=== PATIENT | female | born 1970 | race Caucasian/White ===

== ENCOUNTER 2018-03-10 00:52 | Inpatient (IN) | payer OTHER ==
[2018-03-10] VITALS (10 sets, daily range): BP systolic 84–124; BP diastolic 58–80
[~2018-03-10] VITALS: Ht 162.6 cm; Wt 59.0 kg
[2018-03-10] MEDS ORDERED: XANAX2 MG ORAL (01:09)
[2018-03-10 02:02] LABS: HEMATOCRIT 31.8 % (37.0-47.0); HEMOGLOBIN 10.3 G/DL (12.0-16.0); MEAN CORPUSCULAR VOLUME 97 FL (80-99); PLATELET COUNT 237 K/UL (150-450); RED BLOOD COUNT 3.27 M/UL (4.20-5.40); RED CELL DISTRIBUTION WIDTH 11.2 % (11.6-14.8); WHITE BLOOD COUNT 5.8 K/UL (4.8-10.8)
[2018-03-10 02:03] LABS: APPEARANCE,URINE CLEAR; BILIRUBIN, URINE NEGATIVE (NEGATIVE); COLOR,URINE PALE YELLOW; GLUCOSE, URINE (UA) NEGATIVE (NEGATIVE); KETONES,URINE NEGATIVE (NEGATIVE); LEUKOCYTE ESTERASE ,URINE NEGATIVE (NEGATIVE); NITRITE,URINE NEGATIVE (NEGATIVE); PH,URINE 6 (4.5-8.0); PROTEIN,URINE NEGATIVE (NEGATIVE); UROBILINOGEN,URINE NORMAL MG/DL (0.0-1.0)
[2018-03-10 02:12] LABS: ANION GAP 10 mmol/L (5-15); BLOOD UREA NITROGEN 6 mg/dL (7-18); CALCIUM 7.8 MG/DL (8.5-10.1); CARBON DIOXIDE 25 MMOL/L (21-32); CHLORIDE 112 MMOL/L (98-107); CREATININE 0.8 MG/DL (0.55-1.30); POTASSIUM 3.4 MMOL/L (3.5-5.1); SODIUM 147 MMOL/L (136-145)
[2018-03-10 02:17] LABS: ALANINE AMINOTRANSFERASE 23 U/L (12-78); ALBUMIN 3.2 G/DL (3.4-5.0); ALBUMIN/GLOBULIN RATIO 1.2 (1.0-2.7); ALKALINE PHOSPHATASE 41 U/L (46-116); ASPARTATE AMINO TRANSFERASE 17 U/L (15-37); BILIRUBIN,TOTAL 0.1 MG/DL (0.2-1.0)
--- NOTE | 2018-03-10 04:44 | Emergency Room Report ---
History of Present Illness General Chief Complaint: Overdose Source: Family Member, EMS Present Illness HPI 47-year-old female presents ED for evaluation. Patient brought in by EMS for overdose. Patient called her father with SI last night. Father called building equipment inspector who called 911. Patient had a pill bottle with her with Xanax. Unclear how any tablets patient ingested. On arrival patient very lethargic. Unable to provide any additional history at this time. History of bipolar. No other aggravating relieving factors. No other associated symptoms Allergies: Coded Allergies: UNABLE TO ASSESS (Unverified , 03/10/18) Patient History Past Medical History: psych hx Past Surgical History: none Pertinent Family History: none Social History: Reports: drug use; Denies: smoking, alcohol use Now: No Immunizations: UTD Reviewed Nursing Documentation: PMH: Agreed; PSxH: Agreed Nursing Documentation-PMH History Of Psychiatric Problem: Yes - BIPOLAR Review of Systems All Other Systems: limited Physical Exam Vital Signs Date Time Temp Pulse Resp B/P (MAP) Pulse Ox O2 Delivery O2 Flow Rate FiO2 03/10/18 01:03 97.6 60 14 80/54 98 Room Air 97.5 03/10/18 01:15 2.0 98 Sp02 EP Interpretation: reviewed, normal General Appearance: lethargic Head: normocephalic Eyes: bilateral eye normal inspection, bilateral eye PERRL ENT: normal ENT inspection Neck: normal inspection Respiratory: chest non-tender, lungs clear, normal breath sounds, speaking full sentences Cardiovascular #1: regular rate, rhythm, no edema Gastrointestinal: normal bowel sounds, non tender, soft, non-distended, no guarding, no rebound Rectal: deferred Genitourinary: no CVA tenderness Musculoskeletal: normal inspection Neurologic: other - lethargic Psychiatric: other - lethargic Skin: normal inspection Lymphatic: normal inspection Medical Decision Making Diagnostic Impression: Primary Impression: Drug overdose Qualified Codes: T50.902A - Poisoning by unspecified drugs, medicaments and biological substances, intentional self-harm, initial encounter Additional Impression: Alcohol intoxication Qualified Codes: F10.929 - Alcohol use, unspecified with intoxication, unspecified ER Course Hospital Course 47-year-old female presents to ED with altered mental status. Took xanax in suicide attempt Differential diagnoses include: ETOH itnoxication, BZ overdose, SI Clinical course She placed on stretcher. On cardiac rehabilitation specialist. After initial history and physical ordered labs, IV fluids, Utox Labs reviewed-Na 147, K 3.3, no leukocytosis, hemoglobin/hematocrit stable, Utox + BZs EKG - NSR, no acute ischemic changes interpreted by me Poison control contacted-no acute intervention required. Observed for respiratory depression. Patient on one-to-one observation case discussed with Dr. vickers and he agreed to accept the patient to his service for further care and support. Dr Murphy contacted for psychiatric evaluation once patient stabilized i. I feel this is a highly complex case requiring extensive working including EKG/Rhythm strip, Xray/CT/US, Blood/urine lab work, repeat exams while in ED, and administration of strong opiates/narcotics for pain control, admission to hospital or close patient follow up. Diagnosis - drug overdose, ETOH intoxication Admitted to telemetry in serious condition Labs Test 03/10/18 01:40 White Blood Count 5.8 K/UL (4.8-10.8) Red Blood Count 3.27 M/UL (4.20-5.40) Hemoglobin 10.3 G/DL (12.0-16.0) Hematocrit 31.8 % (37.0-47.0) Mean Corpuscular Volume 97 FL (80-99) Mean Corpuscular Hemoglobin 31.5 PG (27.0-31.0) Mean Corpuscular Hemoglobin Concent 32.4 G/DL (32.0-36.0) Red Cell Distribution Width 11.2 % (11.6-14.8) Platelet Count 237 K/UL (150-450) Mean Platelet Volume 6.5 FL (6.5-10.1) Neutrophils (%) (Auto) % (45.0-75.0) Lymphocytes (%) (Auto) % (20.0-45.0) Monocytes (%) (Auto) % (1.0-10.0) Eosinophils (%) (Auto) % (0.0-3.0) Basophils (%) (Auto) % (0.0-2.0) Urine Color Pale yellow Urine Appearance Clear Urine pH 6 (4.5-8.0) Urine Specific [place] 1.010 (1.005-1.035) Urine Protein Negative (NEGATIVE) Urine Glucose (UA) Negative (NEGATIVE) Urine Ketones Negative (NEGATIVE) Urine Occult Blood Negative (NEGATIVE) Urine Nitrite Negative (NEGATIVE) Urine Bilirubin Negative (NEGATIVE) Urine Urobilinogen Normal MG/DL (0.0-1.0) Urine Leukocyte Esterase Negative (NEGATIVE) Urine HCG, Qualitative Negative (NEGATIVE) Sodium Level 147 MMOL/L (136-145) Potassium Level 3.4 MMOL/L (3.5-5.1) Chloride Level 112 MMOL/L (98-107) Carbon Dioxide Level 25 MMOL/L (21-32) Anion Gap 10 mmol/L (5-15) Blood Urea Nitrogen 6 mg/dL (7-18) Creatinine 0.8 MG/DL (0.55-1.30) Estimat Glomerular Filtration Rate > 60 mL/min (>60) Glucose Level 92 MG/DL (74-106) Calcium Level 7.8 MG/DL (8.5-10.1) Total Bilirubin 0.1 MG/DL (0.2-1.0) Aspartate Amino Transf (AST/SGOT) 17 U/L (15-37) Alanine Aminotransferase (ALT/SGPT) 23 U/L (12-78) Alkaline Phosphatase 41 U/L (46-116) Total Protein 5.9 G/DL (6.4-8.2) Albumin 3.2 G/DL (3.4-5.0) Globulin 2.7 g/dL Albumin/Globulin Ratio 1.2 (1.0-2.7) Salicylates Level 1.0 ug/mL (2.8-20) Urine Opiates Screen Negative (NEGATIVE) Acetaminophen Level < 2 MCG/ML (10-30) Urine Barbiturates Screen Negative (NEGATIVE) Phencyclidine (PCP) Screen Negative (NEGATIVE) Urine Amphetamines Screen Negative (NEGATIVE) Urine Benzodiazepines Screen Positive (NEGATIVE) Urine Cocaine Screen Negative (NEGATIVE) Urine Marijuana (THC) Screen Negative (NEGATIVE) Serum Alcohol 215 mg/dL EKG Diagnostic Results Rate: normal Rhythm: NSR ST Segments: no acute changes ASA given to the pt in ED: No Rhythm Strip Diag. Results EP Interpretation: yes Rhythm: NSR, no PVC's, no ectopy Last Vital Signs Date Time Temp Pulse Resp B/P (MAP) Pulse Ox O2 Delivery O2 Flow Rate FiO2 03/10/18 03:15 97.5 51 13 84/58 100 Nasal Cannula 2.0 98 97.5 Status: improved Disposition: ADMITTED INPATIENT Condition: Serious Referrals: [facility],REFERRING (PCP) Carlo De La Paz MD Mar 10, 2018 04:44
--- NOTE | 2018-03-10 11:15 | Consultation ---
History of Present Illness General Date patient seen: Mar 10, 2018 Chief Complaint: Overdose Present Illness HPI 47-year-old female presents ED for evaluation. Patient brought in by EMS for overdose after she took her Xanax and vodka. Per father the pt called her last night and stated that she is going to end her life by taking Xanax and she was drinking . the father called 911 and flew to [place] from [place]. During the evaluation, the pt was slightly confused. Her speech was slurred and she stated that she tried to end her life bc she has been dealing with depression for 27 years and wanted to put her family out of misery. The pt has a sitter and her Xanax was confiscated and will destroyed by pharmacy. Allergies: Coded Allergies: UNABLE TO ASSESS (Unverified , 03/10/18) Medication History Scheduled Alprazolam* (Xanax*), 2 MG ORAL BID, (Reported) Patient History Limited by: medical condition History Provided By: Patient, Family Member, Medical Record, PMD Healthcare decision maker Resuscitation status Advanced Directive on File Past Medical/Surgical History Past Medical/Surgical History: (1) Alcohol intoxication (2) Drug overdose Review of Systems Psychiatric: Reports: see HPI, prior hx, anxiety, depressed feelings, emotional problems Physical Exam General Appearance: no apparent distress, alert, confused Neurologic: oriented x 3, responsive, depressed affect Last 24 Hour Vital Signs Date Time Temp Pulse Resp B/P (MAP) Pulse Ox O2 Delivery O2 Flow Rate FiO2 03/10/18 07:30 97.8 67 16 95/70 97 Nasal Cannula 2.0 97.8 03/10/18 06:15 97.8 67 15 97/70 99 Nasal Cannula 2.0 98 97.8 03/10/18 05:15 97.8 69 15 124/80 97 Nasal Cannula 2.0 98 97.8 03/10/18 04:15 97.8 83 13 94/58 100 Nasal Cannula 2.0 98 97.8 03/10/18 03:15 97.5 51 13 84/58 100 Nasal Cannula 2.0 98 97.5 03/10/18 02:15 97.5 83 15 112/74 100 Nasal Cannula 2.0 98 97.5 03/10/18 01:15 97.5 58 14 84/64 98 Nasal Cannula 2.0 98 97.5 03/10/18 01:15 58 14 Nasal Cannula 2.0 98 03/10/18 01:03 97.6 60 14 80/54 98 Room Air 97.5 Intake and Output 03/09/18 03/10/18 19:00 07:00 Intake Total 3000 ml Output Total 1200 ml Balance 1800 ml Intake IV Total 3000 ml Output Urine Total 1200 ml Laboratory Tests Test 03/10/18 01:40 White Blood Count 5.8 K/UL (4.8-10.8) Red Blood Count 3.27 M/UL (4.20-5.40) L Hemoglobin 10.3 G/DL (12.0-16.0) L Hematocrit 31.8 % (37.0-47.0) L Mean Corpuscular Volume 97 FL (80-99) Mean Corpuscular Hemoglobin 31.5 PG (27.0-31.0) H Mean Corpuscular Hemoglobin Concent 32.4 G/DL (32.0-36.0) Red Cell Distribution Width 11.2 % (11.6-14.8) L Platelet Count 237 K/UL (150-450) Mean Platelet Volume 6.5 FL (6.5-10.1) Neutrophils (%) (Auto) % (45.0-75.0) Lymphocytes (%) (Auto) % (20.0-45.0) Monocytes (%) (Auto) % (1.0-10.0) Eosinophils (%) (Auto) % (0.0-3.0) Basophils (%) (Auto) % (0.0-2.0) Urine Color Pale yellow Urine Appearance Clear Urine pH 6 (4.5-8.0) Urine Specific [place] 1.010 (1.005-1.035) Urine Protein Negative (NEGATIVE) Urine Glucose (UA) Negative (NEGATIVE) Urine Ketones Negative (NEGATIVE) Urine Occult Blood Negative (NEGATIVE) Urine Nitrite Negative (NEGATIVE) Urine Bilirubin Negative (NEGATIVE) Urine Urobilinogen Normal MG/DL (0.0-1.0) Urine Leukocyte Esterase Negative (NEGATIVE) Urine HCG, Qualitative Negative (NEGATIVE) Sodium Level 147 MMOL/L (136-145) H Potassium Level 3.4 MMOL/L (3.5-5.1) L Chloride Level 112 MMOL/L (98-107) H Carbon Dioxide Level 25 MMOL/L (21-32) Anion Gap 10 mmol/L (5-15) Blood Urea Nitrogen 6 mg/dL (7-18) L Creatinine 0.8 MG/DL (0.55-1.30) Estimat Glomerular Filtration Rate > 60 mL/min (>60) Glucose Level 92 MG/DL (74-106) Calcium Level 7.8 MG/DL (8.5-10.1) L Total Bilirubin 0.1 MG/DL (0.2-1.0) L Aspartate Amino Transf (AST/SGOT) 17 U/L (15-37) Alanine Aminotransferase (ALT/SGPT) 23 U/L (12-78) Alkaline Phosphatase 41 U/L (46-116) L Total Protein 5.9 G/DL (6.4-8.2) L Albumin 3.2 G/DL (3.4-5.0) L Globulin 2.7 g/dL Albumin/Globulin Ratio 1.2 (1.0-2.7) Salicylates Level 1.0 ug/mL (2.8-20) L Urine Opiates Screen Negative (NEGATIVE) Acetaminophen Level < 2 MCG/ML (10-30) L Urine Barbiturates Screen Negative (NEGATIVE) Phencyclidine (PCP) Screen Negative (NEGATIVE) Urine Amphetamines Screen Negative (NEGATIVE) Urine Benzodiazepines Screen Positive (NEGATIVE) H Urine Cocaine Screen Negative (NEGATIVE) Urine Marijuana (THC) Screen Negative (NEGATIVE) Serum Alcohol 215 mg/dL Height (Feet): 5 Height (Inches): 4.00 Weight (Pounds): 130 Medications Current Medications Medications (Trade) Dose Ordered Sig/Philomena Route PRN Reason Start Time Stop Time Status Last Admin Dose Admin Diazepam (Valium) 10 mg Q6H PRN ORAL For Anxiety 03/10/18 11:00 03/17/18 10:59 Fluoxetine HCl (PROzac) 20 mg DAILY ORAL 03/11/18 11:07 04/10/18 11:06 Folic Acid (Folate) 1 mg DAILY ORAL 03/10/18 11:06 04/09/18 11:05 Multivitamins (Multivitamins) 1 tab DAILY ORAL 03/10/18 11:07 04/09/18 11:06 Sodium Chloride 1,000 ml @ 75 mls/hr [id number] IV 03/10/18 10:00 04/09/18 09:59 03/10/18 10:31 Thiamine HCl (Vitamin B1) 100 mg DAILY ORAL 03/10/18 11:06 04/09/18 11:05 Assessment/Plan Status: stable Assessment/Plan MDD Alcohol/benzo dependence anxiety ?borderline pd? -dc Xanax -folate -thiamine -Multivitamin -Prozac -send to psychiatric unit after medically cleared. Jasvir Murphy MD Mar 10, 2018 11:15
[2018-03-10] MEDS: Thiamine 100mg tab ORAL SCH (11:22)
--- NOTE | 2018-03-10 15:00 | Consultation ---
Consult Note Consult Note abnormal electrolytes- 47-year-old female presents ED for evaluation. Patient brought in by EMS for overdose. Patient called her father with SI last night. Father called building energy retrofit technician who called 911. Patient had a pill bottle with her with Xanax. Unclear how any tablets patient ingested. On arrival patient very lethargic. Unable to provide any additional history at this time. History of bipolar. No other aggravating relieving factors. No other associated symptoms Past Medical History: psych hx History Of Psychiatric Problem: Yes - BIPOLAR slow- slurred labs reviewed [place] Assessment/Plan Drug OD- Alcohol Intox- Low Na High Na Anemia IV Fluid- KCL IV monitor Rick Shahid MD Mar 10, 2018 15:00
--- NOTE | 2018-03-10 15:30 | Cardiology Report ---
APPROVED REPORT EKG Measurement Heart [id number] Normal sinus rhythm Cannot rule out Inferior infarct, age undetermined Prolonged QT Abnormal ECG
[2018-03-10] MEDS: Docusate 100mg cap ORAL SCH ×2 (15:42→17:17)
[2018-03-10] MEDS: D5 1/2NS w/KCl 20mEq 1,000 ML IV SCH (15:42)
--- NOTE | 2018-03-10 16:45 | History and Physical Report ---
DATE OF ADMISSION: 03/10/2018 HISTORY OF PRESENT ILLNESS: The patient came in with overdose on Xanax and alcohol. The patient is too confused, cannot get a reliable history at this point. So, we do not know how much she consumed. Speech is garbled at this point and cannot say any words coherently. The patient, according to the ER doctor who called her father, with SI intent last night. Father called manager research who called 911. The patient had a drug bottle with herself of the Xanax and again we are not sure how many tablets she took. She is a very poor historian. The patient is currently lethargic upon arrival, apparently has history of bipolar as well. Again, cannot get any history at this point. PAST MEDICAL HISTORY: Depression as well as GERD. PAST SURGICAL HISTORY: Cannot tell me what surgery she had. MEDICATIONS: Apparently takes Xanax, but again cannot get a reliable history from her. FAMILY HISTORY: Unable to obtain. SOCIAL HISTORY: The patient claims that she smokes and has history of drug and alcohol abuse, but again speech is garbled, history is not reliable at this point. REVIEW OF SYSTEMS: Again, the patient has gargled speech, cannot comprehend what she is saying. She is confused and moaning. Eyes spontaneously open. PHYSICAL EXAMINATION: VITAL SIGNS: Temperature 97.5 degrees, pulse is 83, and blood pressure 112/74. HEENT: PERRLA. NECK: Supple. No lymphadenopathy. CHEST: Clear to auscultation. CARDIOVASCULAR: Regular rate and rhythm. ABDOMEN: Soft and nontender. Positive bowel sounds. EXTREMITIES: No edema. Reflexes on both sides. CENTRAL NERVOUS SYSTEM: Does not follow neurological exam, agitated, garbled speech, and only oriented to name. LABORATORY AND DIAGNOSTIC DATA: WBC of 5.8, hemoglobin 10.3, and platelets 237. Sodium 147, potassium of 3.4, chloride of 112, carbon dioxide 25, BUN of 6, creatinine of 0.8, and glucose of 92. ASSESSMENT AND PLAN: Overdose on Xanax and possibly alcohol and suicidal intent. One-to-one sitter is ordered from the ER. We have also consulted Dr. Presley, Dr. Murphy, Dr. Love, Dr. Byers, and Dr. Gutierrez to make sure there is no cardiac pathology from this overdose as well as to help with alcohol and Xanax withdrawal and also for the treatment of the depression as well as for the treatment of the hypokalemia. Erika Cesar M.D. DR: BART JOB#: [id number] CC:
--- NOTE | 2018-03-10 19:13 | Consultation ---
Consult Note Consult Note NEUROLOGY CONSULTATION: Full note dictated #[id number] 47 y/o, RH, CF with PH of depression for sometime who got despondent and took a large amount of Xanax. She was brought to the [facility] ER and admitted for a Xanax OD. She feels better now. She however is still depressed. ON EXAM: Problems with orientation, memory. No focal or lateralizing findings. IMPRESSION: Benzodiazepine + Alcohol intoxication - now better. REC: Rx of depression. Normal diet. Observe. Hugh Love M.D., M.S.P.H. HUGH LOVE Mar 10, 2018 19:13
--- NOTE | 2018-03-10 21:30 | Consultation ---
DATE OF CONSULTATION: 03/10/2018 NEUROLOGY CONSULTATION CONSULTING PHYSICIAN: Carlos Love M.D. REQUESTING PHYSICIAN: Erika Cesar M.D. HISTORY: Ms. Yi Salcedo is a 47-year-old, right-handed, lady, who has had depression for quite sometime now. She apparently got despondent and took a large dose of Xanax with alcohol. As per her chart, she had called her father the night before and stated that she was going to end her life by taking Xanax and drinking alcohol. The father called the emergency services and flew in from [place] to [place]. She was then brought into the [facility] emergency room and admitted. At this point in time, she feels better, but she still quite depressed. She is aware that the mind is still not clear. She, however denies any weakness on one side or the other, numbness on one side or the other, problems with speech, problems with language, problems with vision, problems with memory, or other neurological problems. PAST MEDICAL HISTORY: Significant for depression for numerous years. FAMILY HISTORY: Nothing significant. PERSONAL HISTORY: Home: She lives alone. 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 Habits: She drinks alcohol from time to time. She denies the use of tobacco or illicit drugs. She also uses Xanax as needed. MEDICATIONS: Present medications at home included Xanax p.r.n. PHYSICAL EXAMINATION: GENERAL: She is a well-developed, well-nourished, lady, lying in bed, in no acute distress. VITAL SIGNS: Pulse 61/minute, blood pressure 101/72 mmHg, respirations 19/minute, and temperature 96.6 degrees Fahrenheit. HEAD: Normocephalic and atraumatic. EENT: Examination benign. NECK: No neck rigidity was observed. NEUROLOGIC EXAMINATION: MENTAL STATUS EXAMINATION: She was awake and alert. She was oriented to person, place, and time except for the exact date. She thought it was the . She was able to recall 3/3 words immediately and could remember them in 1 minute, but could only remember 2/3 words in 3 minutes. She was able to remember presidents, Trump through Obama, but could not remember presidents prior to that. Her mathematical skills were fairly good. Her visuospatial function was preserved. SPEECH: She had no dysarthria. LANGUAGE: She had no aphasia. CRANIAL NERVE EXAMINATION: II: The visual story were intact to confrontation testing. III, IV & : External ocular movements were full and the pupils 3 mm in diameter, equal, round, regular, and reactive to light. V: She had normal facial sensations, and the temporales, masseters, and pterygoids functioned normally. VII: She had normal facial expressions and no facial asymmetry. VIII: She was able to hear well bilaterally and had no nystagmus. IX: The palate moved symmetrically on phonation. X: She had no hoarseness of voice. XI: The sternocleidomastoids and trapezii functioned normally. XII: The tongue was in the midline without any fasciculations or atrophy. MOTOR SYSTEM: The tone was normal in all four extremities. Examination of muscle mass revealed no focal wasting. Examination of power revealed G 5/5 power in all muscle groups tested. SENSORY EXAMINATION: She had intact sensations to pinprick, light touch, and graphesthesia. COORDINATION: She performed well on aviuhy-zi-nrlh and iacm-ut-knqw testing. REFLEXES: 2+ and bilaterally symmetrical at the biceps, triceps, brachioradialis, and knees. 1+ at both ankles. The plantar responses were flexor bilaterally. STANCE & GAIT: Were deferred. DIAGNOSTIC IMPRESSION: 1. Ms. Yi Salcedo is a 47-year-old, right-handed, lady, who does have a long history of depression, who apparently got despondent and took a large amount of Xanax and alcohol. She was brought into the emergency room and admitted for Xanax overdose. She feels significantly better now, but she is still quite depressed. 2. On neurological examination, at this time, she does have mild problems with orientation, and recent and remote memory. She however does not demonstrate any focal or lateralizing neurological findings. 3. Laboratory data obtained thus far revealed that she is mildly anemic with a hemoglobin of 10.3 G. The chemistry panel revealed a sodium elevated to 147, chloride elevated to 112 and an albumin low at 3.2. Her serum alcohol level was elevated to 215 and her urine toxicology screen was positive for benzodiazepines. Her urinalysis was benign. 4. The patient's history, neurological examination, and laboratory data are most compatible with intoxication with Xanax and alcohol. RECOMMENDATIONS: 1. Agree with management thus far. 2. Aggressive treatment of depression. 3. The patient is awake and alert now and can be started on a normal diet. 4. The patient should be observed closely and depending on how she fares further recommendations will be given. Thank you for entrusting me with the care of Ms. Salcedo. I shall follow her with you. Carlos Love M.D., M.S.P.H. DR: CARMEN JOB#: [id number] MTDD
--- NOTE | 2018-03-10 23:52 | Cardiology Progress Note ---
Assessment/Plan Assessment/Plan The patient is seen and examined, full consult note will be dictated shortly. Objective Last 24 Hour Vital Signs Date Time Temp Pulse Resp B/P (MAP) Pulse Ox O2 Delivery O2 Flow Rate FiO2 03/10/18 21:00 Room Air 03/10/18 20:00 97.5 73 19 102/74 (83) 94 97.5 03/10/18 16:00 69 03/10/18 16:00 96.6 63 19 101/68 (79) 96 96.6 03/10/18 12:00 96.6 61 19 101/72 (82) 97 96.6 03/10/18 12:00 74 03/10/18 08:00 68 03/10/18 08:00 95.5 70 18 89/58 (68) 97 95.5 03/10/18 08:00 Room Air 03/10/18 07:30 97.8 67 16 95/70 97 Nasal Cannula 2.0 97.8 03/10/18 06:15 97.8 67 15 97/70 99 Nasal Cannula 2.0 98 97.8 03/10/18 05:15 97.8 69 15 124/80 97 Nasal Cannula 2.0 98 97.8 03/10/18 04:15 97.8 83 13 94/58 100 Nasal Cannula 2.0 98 97.8 03/10/18 03:15 97.5 51 13 84/58 100 Nasal Cannula 2.0 98 97.5 03/10/18 02:15 97.5 83 15 112/74 100 Nasal Cannula 2.0 98 97.5 03/10/18 01:15 97.5 58 14 84/64 98 Nasal Cannula 2.0 98 97.5 03/10/18 01:15 58 14 Nasal Cannula 2.0 98 03/10/18 01:03 97.6 60 14 80/54 98 Room Air 97.5 Intake and Output 03/09/18 03/10/18 19:00 07:00 Intake Total 3000 ml Output Total 1200 ml Balance 1800 ml Intake IV Total 3000 ml Output Urine Total 1200 ml Laboratory Tests Test 03/10/18 01:40 White Blood Count 5.8 K/UL (4.8-10.8) Red Blood Count 3.27 M/UL (4.20-5.40) L Hemoglobin 10.3 G/DL (12.0-16.0) L Hematocrit 31.8 % (37.0-47.0) L Mean Corpuscular Volume 97 FL (80-99) Mean Corpuscular Hemoglobin 31.5 PG (27.0-31.0) H Mean Corpuscular Hemoglobin Concent 32.4 G/DL (32.0-36.0) Red Cell Distribution Width 11.2 % (11.6-14.8) L Platelet Count 237 K/UL (150-450) Mean Platelet Volume 6.5 FL (6.5-10.1) Neutrophils (%) (Auto) % (45.0-75.0) Lymphocytes (%) (Auto) % (20.0-45.0) Monocytes (%) (Auto) % (1.0-10.0) Eosinophils (%) (Auto) % (0.0-3.0) Basophils (%) (Auto) % (0.0-2.0) Urine Color Pale yellow Urine Appearance Clear Urine pH 6 (4.5-8.0) Urine Specific [place] 1.010 (1.005-1.035) Urine Protein Negative (NEGATIVE) Urine Glucose (UA) Negative (NEGATIVE) Urine Ketones Negative (NEGATIVE) Urine Occult Blood Negative (NEGATIVE) Urine Nitrite Negative (NEGATIVE) Urine Bilirubin Negative (NEGATIVE) Urine Urobilinogen Normal MG/DL (0.0-1.0) Urine Leukocyte Esterase Negative (NEGATIVE) Urine HCG, Qualitative Negative (NEGATIVE) Sodium Level 147 MMOL/L (136-145) H Potassium Level 3.4 MMOL/L (3.5-5.1) L Chloride Level 112 MMOL/L (98-107) H Carbon Dioxide Level 25 MMOL/L (21-32) Anion Gap 10 mmol/L (5-15) Blood Urea Nitrogen 6 mg/dL (7-18) L Creatinine 0.8 MG/DL (0.55-1.30) Estimat Glomerular Filtration Rate > 60 mL/min (>60) Glucose Level 92 MG/DL (74-106) Calcium Level 7.8 MG/DL (8.5-10.1) L Total Bilirubin 0.1 MG/DL (0.2-1.0) L Aspartate Amino Transf (AST/SGOT) 17 U/L (15-37) Alanine Aminotransferase (ALT/SGPT) 23 U/L (12-78) Alkaline Phosphatase 41 U/L (46-116) L C-Reactive Protein, Quantitative < 0.4 mg/dL (0.00-0.90) Total Protein 5.9 G/DL (6.4-8.2) L Albumin 3.2 G/DL (3.4-5.0) L Globulin 2.7 g/dL Albumin/Globulin Ratio 1.2 (1.0-2.7) Salicylates Level 1.0 ug/mL (2.8-20) L Urine Opiates Screen Negative (NEGATIVE) Acetaminophen Level < 2 MCG/ML (10-30) L Urine Barbiturates Screen Negative (NEGATIVE) Phencyclidine (PCP) Screen Negative (NEGATIVE) Urine Amphetamines Screen Negative (NEGATIVE) Urine Benzodiazepines Screen Positive (NEGATIVE) H Urine Cocaine Screen Negative (NEGATIVE) Urine Marijuana (THC) Screen Negative (NEGATIVE) Serum Alcohol 215 mg/dL Jelani Gutierrez MD Mar 10, 2018 23:52
[2018-03-11] VITALS: BP 119/79
[2018-03-11] MEDS: D5 1/2NS w/KCl 20mEq 1,000 ML IV SCH (01:33)
[2018-03-11 04:00] VITALS: BP 112/74
[2018-03-11 06:38] LABS: EOSINOPHILS % (AUTO) 1.2 % (0.0-3.0); HEMATOCRIT 33.2 % (37.0-47.0); HEMOGLOBIN 10.9 G/DL (12.0-16.0); LYMPHOCYTES % (AUTO) 26.2 % (20.0-45.0); MEAN CORPUSCULAR VOLUME 98 FL (80-99); NEUTROPHILS % (AUTO) 67.6 % (45.0-75.0); PLATELET COUNT 220 K/UL (150-450); RED BLOOD COUNT 3.39 M/UL (4.20-5.40); RED CELL DISTRIBUTION WIDTH 11.7 % (11.6-14.8); WHITE BLOOD COUNT 5.4 K/UL (4.8-10.8)
[2018-03-11 07:03] LABS: ALANINE AMINOTRANSFERASE 27 U/L (12-78); ALBUMIN 2.8 G/DL (3.4-5.0); ALBUMIN/GLOBULIN RATIO 1.1 (1.0-2.7); ALKALINE PHOSPHATASE 42 U/L (46-116); ANION GAP 7 mmol/L (5-15); ASPARTATE AMINO TRANSFERASE 21 U/L (15-37); BILIRUBIN,TOTAL 0.4 MG/DL (0.2-1.0); BLOOD UREA NITROGEN 5 mg/dL (7-18); CALCIUM 7.6 MG/DL (8.5-10.1); CARBON DIOXIDE 23 MMOL/L (21-32); CHLORIDE 112 MMOL/L (98-107); CHOLESTEROL 135 MG/DL (< 200); CREATINE KINASE 63 U/L (26-308); CREATININE 0.7 MG/DL (0.55-1.30); GAMMA GLUTAMYL TRANSPEPTIDASE 23 U/L (5-85); HDL CHOLESTEROL 52 MG/DL (40-60); PHOSPHORUS 2.1 MG/DL (2.5-4.9); POTASSIUM 3.7 MMOL/L (3.5-5.1); SODIUM 141 MMOL/L (136-145); TRIGLYCERIDES 93 MG/DL (30-150)
[2018-03-11 07:14] LABS: % IRON SATURATION 24 % (15-50); IRON 62 ug/dL (50-175); TOTAL IRON BINDING CAPACITY 262 ug/dL (250-450)
[2018-03-11 07:48] VITALS: BP 107/69
[2018-03-11] MEDS: Docusate 100mg cap ORAL SCH ×3 (08:10→17:53)
[2018-03-11] MEDS: Thiamine 100mg tab ORAL SCH (08:10)
--- NOTE | 2018-03-11 09:04 | Nephrology Progress Note ---
Assessment/Plan Problem List: (1) Drug overdose (2) Alcohol intoxication (3) Anemia Assessment Drug OD- Alcohol Intox- Low K High Na Anemia Plan DC Phillips- DC IV- Ambulate PO liquids Subjective ROS Limited/Unobtainable: No Constitutional: Reports: other - more alert Objective Objective Last 24 Hour Vital Signs Date Time Temp Pulse Resp B/P (MAP) Pulse Ox O2 Delivery O2 Flow Rate FiO2 03/11/18 08:00 77 03/11/18 07:48 98.1 79 20 107/69 (82) 95 98.1 03/11/18 04:00 98.4 74 19 112/74 (87) 95 98.4 03/11/18 04:00 73 03/11/18 00:00 96.8 68 19 119/79 (92) 99 96.8 03/11/18 00:00 72 03/10/18 21:00 Room Air 03/10/18 20:00 97.5 73 19 102/74 (83) 94 97.5 03/10/18 20:00 74 03/10/18 16:00 69 03/10/18 16:00 96.6 63 19 101/68 (79) 96 96.6 03/10/18 12:00 96.6 61 19 101/72 (82) 97 96.6 03/10/18 12:00 74 Intake and Output 03/10/18 03/11/18 19:00 07:00 Output Total 1000 ml 1600 ml Balance -1000 ml -1600 ml Output Urine Total 1000 ml 1600 ml Laboratory Tests 03/11/18 06:03: White Blood Count 5.4, Red Blood Count 3.39L, Hemoglobin 10.9L, Hematocrit 33.2L , Mean Corpuscular Volume 98, Mean Corpuscular Hemoglobin 32.2H, Mean Corpuscular Hemoglobin Concent 32.9, Red Cell Distribution Width 11.7, Platelet Count 220, Mean Platelet Volume 6.7, Neutrophils (%) (Auto) 67.6, Lymphocytes (% ) (Auto) 26.2, Monocytes (%) (Auto) 4.0, Eosinophils (%) (Auto) 1.2, Basophils ( %) (Auto) 1.0, Sodium Level 141, Potassium Level 3.7, Chloride Level 112H, Carbon Dioxide Level 23, Anion Gap 7, Blood Urea Nitrogen 5L, Creatinine 0.7, Estimat Glomerular Filtration Rate > 60, Glucose Level 123H, Uric Acid 0.8L, Calcium Level 7.6L, Phosphorus Level 2.1L, Magnesium Level 2.5H, Iron Level 62, Total Iron Binding Capacity 262, Percent Iron Saturation 24, Unsaturated Iron Binding 200, Ferritin 30, Total Bilirubin 0.4, Gamma Glutamyl Transpeptidase 23 , Aspartate Amino Transf (AST/SGOT) 21, Alanine Aminotransferase (ALT/SGPT) 27, Alkaline Phosphatase 42L, Total Creatine Kinase 63, Pro-B-Type Natriuretic Peptide 538H, Total Protein 5.3L, Albumin 2.8L, Globulin 2.5, Albumin/Globulin Ratio 1.1, Triglycerides Level 93, Cholesterol Level 135, LDL Cholesterol 83, HDL Cholesterol 52, Cholesterol/HDL Ratio 2.6L, Vitamin B12 Level 419, Thyroid Stimulating Hormone (TSH) 1.537 Height (Feet): 5 Height (Inches): 4.00 Weight (Pounds): 130 General Appearance: no apparent distress Neck: normal alignment Cardiovascular: normal rate Respiratory/Chest: lungs clear Abdomen: soft Rick Presley MD Mar 11, 2018 09:04
[2018-03-11] MEDS ORDERED: Phospha 250 Neutral tab ORAL SCH (09:30)
[2018-03-11] MEDS ORDERED: PAXIL40 MG ORAL (09:32)
[2018-03-11] MEDS ORDERED: TOPAMAX100 MG ORAL (09:32)
[2018-03-11] MEDS ORDERED: Vitamin D 50,000 units cap ORAL SCH (11:00)
[2018-03-11 11:53] VITALS: BP 115/73
--- NOTE | 2018-03-11 13:01 | General Progress Note ---
Assessment/Plan Status: unchanged Assessment/Plan MDD Alcohol/benzo dependence anxiety ?borderline pd? -dc Xanax -folate -thiamine -Multivitamin -cymbalta -seroquel -send to psychiatric unit after medically cleared. -vol or 5150 -d/w father Subjective Date patient seen: Mar 11, 2018 Neurologic/Psychiatric: Reports: anxiety, depressed, emotional problems Allergies: Coded Allergies: NO KNOWN ALLERGIES (Verified Allergy, Unknown, 03/10/18) Subjective the pt cont to have suicidal thoughts and stated that anxiety is 7 out of 10. the pt has good insight and agrees to go to psych vol Objective Last 24 Hour Vital Signs Date Time Temp Pulse Resp B/P (MAP) Pulse Ox O2 Delivery O2 Flow Rate FiO2 03/11/18 11:53 98.4 66 20 115/73 (87) 96 98.4 03/11/18 09:00 Room Air 03/11/18 08:00 77 03/11/18 07:48 98.1 79 20 107/69 (82) 95 98.1 03/11/18 04:00 98.4 74 19 112/74 (87) 95 98.4 03/11/18 04:00 73 03/11/18 00:00 96.8 68 19 119/79 (92) 99 96.8 03/11/18 00:00 72 03/10/18 21:00 Room Air 03/10/18 20:00 97.5 73 19 102/74 (83) 94 97.5 03/10/18 20:00 74 03/10/18 16:00 69 03/10/18 16:00 96.6 63 19 101/68 (79) 96 96.6 Intake and Output 03/10/18 03/11/18 19:00 07:00 Output Total 1000 ml 1600 ml Balance -1000 ml -1600 ml Output Urine Total 1000 ml 1600 ml Laboratory Tests 03/11/18 06:03: White Blood Count 5.4, Red Blood Count 3.39L, Hemoglobin 10.9L, Hematocrit 33.2L , Mean Corpuscular Volume 98, Mean Corpuscular Hemoglobin 32.2H, Mean Corpuscular Hemoglobin Concent 32.9, Red Cell Distribution Width 11.7, Platelet Count 220, Mean Platelet Volume 6.7, Neutrophils (%) (Auto) 67.6, Lymphocytes (% ) (Auto) 26.2, Monocytes (%) (Auto) 4.0, Eosinophils (%) (Auto) 1.2, Basophils ( %) (Auto) 1.0, Sodium Level 141, Potassium Level 3.7, Chloride Level 112H, Carbon Dioxide Level 23, Anion Gap 7, Blood Urea Nitrogen 5L, Creatinine 0.7, Estimat Glomerular Filtration Rate > 60, Glucose Level 123H, Uric Acid 0.8L, Calcium Level 7.6L, Phosphorus Level 2.1L, Magnesium Level 2.5H, Iron Level 62, Total Iron Binding Capacity 262, Percent Iron Saturation 24, Unsaturated Iron Binding 200, Ferritin 30, Total Bilirubin 0.4, Gamma Glutamyl Transpeptidase 23 , Aspartate Amino Transf (AST/SGOT) 21, Alanine Aminotransferase (ALT/SGPT) 27, Alkaline Phosphatase 42L, Total Creatine Kinase 63, Pro-B-Type Natriuretic Peptide 538H, Total Protein 5.3L, Albumin 2.8L, Globulin 2.5, Albumin/Globulin Ratio 1.1, Triglycerides Level 93, Cholesterol Level 135, LDL Cholesterol 83, HDL Cholesterol 52, Cholesterol/HDL Ratio 2.6L, Vitamin B12 Level 419, Thyroid Stimulating Hormone (TSH) 1.537 Height (Feet): 5 Height (Inches): 4.00 Weight (Pounds): 130 General Appearance: WD/WN, no apparent distress, alert Neurologic: oriented x 3, responsive, depressed affect Jasvir Murphy MD Mar 11, 2018 13:01
--- NOTE | 2018-03-11 15:53 | Neurology Progress Note ---
Interim History Interim History Interim History Ms. Salcedo feels better today. Her mood is less depressed. The mind is clearer. Her father is with her. She is steady on her feet. Her Phillips is out. She is eating well. Her cognitive function is better. Her motor function is also better. She is eager to go home. Plans are to send her to a psychiatric facility. Review of Systems Neuro Review of Systems Benign. Objective Physical Exam Last Vital Signs Date Time Temp Pulse Resp B/P (MAP) Pulse Ox O2 Delivery O2 Flow Rate FiO2 03/11/18 12:00 64 03/11/18 11:53 98.4 20 115/73 (87) 96 98.4 03/11/18 09:00 Room Air 03/10/18 07:30 2.0 03/10/18 06:15 98 Laboratory Tests Test 03/11/18 06:03 White Blood Count 5.4 K/UL (4.8-10.8) Red Blood Count 3.39 M/UL (4.20-5.40) L Hemoglobin 10.9 G/DL (12.0-16.0) L Hematocrit 33.2 % (37.0-47.0) L Mean Corpuscular Volume 98 FL (80-99) Mean Corpuscular Hemoglobin 32.2 PG (27.0-31.0) H Mean Corpuscular Hemoglobin Concent 32.9 G/DL (32.0-36.0) Red Cell Distribution Width 11.7 % (11.6-14.8) Platelet Count 220 K/UL (150-450) Mean Platelet Volume 6.7 FL (6.5-10.1) Neutrophils (%) (Auto) 67.6 % (45.0-75.0) Lymphocytes (%) (Auto) 26.2 % (20.0-45.0) Monocytes (%) (Auto) 4.0 % (1.0-10.0) Eosinophils (%) (Auto) 1.2 % (0.0-3.0) Basophils (%) (Auto) 1.0 % (0.0-2.0) Sodium Level 141 MMOL/L (136-145) Potassium Level 3.7 MMOL/L (3.5-5.1) Chloride Level 112 MMOL/L (98-107) H Carbon Dioxide Level 23 MMOL/L (21-32) Anion Gap 7 mmol/L (5-15) Blood Urea Nitrogen 5 mg/dL (7-18) L Creatinine 0.7 MG/DL (0.55-1.30) Estimat Glomerular Filtration Rate > 60 mL/min (>60) Glucose Level 123 MG/DL (74-106) H Uric Acid 0.8 MG/DL (2.6-7.2) L Calcium Level 7.6 MG/DL (8.5-10.1) L Phosphorus Level 2.1 MG/DL (2.5-4.9) L Magnesium Level 2.5 MG/DL (1.8-2.4) H Iron Level 62 ug/dL (50-175) Total Iron Binding Capacity 262 ug/dL (250-450) Percent Iron Saturation 24 % (15-50) Unsaturated Iron Binding 200 ug/dL (112-346) Ferritin 30 NG/ML (8-388) Total Bilirubin 0.4 MG/DL (0.2-1.0) Gamma Glutamyl Transpeptidase 23 U/L (5-85) Aspartate Amino Transf (AST/SGOT) 21 U/L (15-37) Alanine Aminotransferase (ALT/SGPT) 27 U/L (12-78) Alkaline Phosphatase 42 U/L (46-116) L Total Creatine Kinase 63 U/L (26-308) Pro-B-Type Natriuretic Peptide 538 pg/mL (0-125) H Total Protein 5.3 G/DL (6.4-8.2) L Albumin 2.8 G/DL (3.4-5.0) L Globulin 2.5 g/dL Albumin/Globulin Ratio 1.1 (1.0-2.7) Triglycerides Level 93 MG/DL (30-150) Cholesterol Level 135 MG/DL (< 200) LDL Cholesterol 83 mg/dL (<100) HDL Cholesterol 52 MG/DL (40-60) Cholesterol/HDL Ratio 2.6 (3.3-4.4) L Vitamin B12 Level 419 PG/ML (193-986) Thyroid Stimulating Hormone (TSH) 1.537 uiU/mL (0.358-3.740) Neurologic Exam Objective PHYSICAL EXAMINATION: GENERAL: She is a well-developed, well-nourished, lady, lying in bed , in no acute distress. HEAD: Normocephalic and atraumatic. EENT: Examination benign. NECK: No neck rigidity was observed. NEUROLOGIC EXAMINATION: MENTAL STATUS EXAMINATION: She was awake and alert. She was oriented to person, place, and time. She was able to recall 3/3 words immediately and could remember them in 1 minute and 3 minutes. She was able to remember presidents, Trump through Rae Senior with minimal hints. Her mathematical skills were fairly good. Her visuospatial function was preserved. SPEECH: She had no dysarthria. LANGUAGE: She had no aphasia. CRANIAL NERVE EXAMINATION: II: The visual story were intact to confrontation testing. III, IV & : External ocular movements were full and the pupils 3 mm in diameter, equal, round, regular, and reactive to light. V: She had normal facial sensations, and the temporales, masseters, and pterygoids functioned normally. VII: She had normal facial expressions and no facial asymmetry. VIII: She was able to hear well bilaterally and had no nystagmus. IX: The palate moved symmetrically on phonation. X: She had no hoarseness of voice. XI: The sternocleidomastoids and trapezii functioned normally. XII: The tongue was in the midline without any fasciculations or atrophy. MOTOR SYSTEM: The tone was normal in all four extremities. Examination of muscle mass revealed no focal wasting. Examination of power revealed G 5/5 power in all muscle groups tested. SENSORY EXAMINATION: She had intact sensations to pinprick, light touch, and graphesthesia. COORDINATION: She performed well on [id number] and [id number] testing. REFLEXES: 2+ and bilaterally symmetrical at the biceps, triceps, brachioradialis , and knees. 1+ at both ankles. The plantar responses were flexor bilaterally. STANCE: She stood up with contact guard. GAIT: She walked well with contact guard. Impression/Recommendations Diagnostic Impression 1. Ms. Yi Salcedo is a 47-year-old, right-handed, lady, who does have a long history of depression, who apparently got despondent and took a large amount of Xanax and alcohol. She was brought into the emergency room and admitted for Xanax overdose. 2. She feels better today. Her mood is less depressed. The mind is clearer. Her father is with her. She is steady on her feet. Her Phillips is out. She is eating well. Her cognitive function is better. Her motor function is also better. She is eager to go home. Plans are to send her to a psychiatric facility. 3. On neurological examination, at this time, she is fully oriented. Her recent and remote memory is close to normal. She does not demonstrate any focal or lateralizing neurological findings. 4. Laboratory data on my initial evaluation revealed that she was mildly anemic with a hemoglobin of 10.3 G. The chemistry panel revealed a sodium elevated to 147, chloride elevated to 112 and an albumin low at 3.2. Her serum alcohol level was elevated to 215 and her urine toxicology screen was positive for benzodiazepines. Her urinalysis was benign. 5. The patient's history, neurological examination, and laboratory data are most compatible with intoxication with Xanax and alcohol. Her encephalopathy is improving. Recommendations 1. Continue present management. 2. Aggressive treatment of depression as per Dr. Murphy 3. Increase activity as tolerated. Hugh Baxter M.D., M.S.P.H. HUGH BAXTER Mar 11, 2018 15:53
[2018-03-11 16:20] VITALS: BP 120/76
--- NOTE | 2018-03-11 17:59 | General Progress Note ---
Assessment/Plan Problem List: (1) Drug overdose ICD Codes: T50.901A - Poisoning by unspecified drugs, medicaments and biological substances, accidental (unintentional), initial encounter SNOMED: [id number] Qualifiers: Qualified Codes: T50.902A - Poisoning by unspecified drugs, medicaments and biological substances, intentional self-harm, initial encounter Status: progressing Assessment/Plan si overdose needs clearance from email administrator before transferring out to [facility] Subjective ROS Limited/Unobtainable: Yes Allergies: Coded Allergies: NO KNOWN ALLERGIES (Verified Allergy, Unknown, 03/10/18) Objective Last 24 Hour Vital Signs Date Time Temp Pulse Resp B/P (MAP) Pulse Ox O2 Delivery O2 Flow Rate FiO2 03/11/18 16:20 97.7 59 20 120/76 (91) 97 97.7 03/11/18 12:00 64 03/11/18 11:53 98.4 66 20 115/73 (87) 96 98.4 03/11/18 09:00 Room Air 03/11/18 08:00 77 03/11/18 07:48 98.1 79 20 107/69 (82) 95 98.1 03/11/18 04:00 98.4 74 19 112/74 (87) 95 98.4 03/11/18 04:00 73 03/11/18 00:00 96.8 68 19 119/79 (92) 99 96.8 03/11/18 00:00 72 03/10/18 21:00 Room Air 03/10/18 20:00 97.5 73 19 102/74 (83) 94 97.5 03/10/18 20:00 74 Intake and Output 03/10/18 03/11/18 19:00 07:00 Output Total 1000 ml 1600 ml Balance -1000 ml -1600 ml Output Urine Total 1000 ml 1600 ml Laboratory Tests 03/11/18 06:03: White Blood Count 5.4, Red Blood Count 3.39L, Hemoglobin 10.9L, Hematocrit 33.2L , Mean Corpuscular Volume 98, Mean Corpuscular Hemoglobin 32.2H, Mean Corpuscular Hemoglobin Concent 32.9, Red Cell Distribution Width 11.7, Platelet Count 220, Mean Platelet Volume 6.7, Neutrophils (%) (Auto) 67.6, Lymphocytes (% ) (Auto) 26.2, Monocytes (%) (Auto) 4.0, Eosinophils (%) (Auto) 1.2, Basophils ( %) (Auto) 1.0, Sodium Level 141, Potassium Level 3.7, Chloride Level 112H, Carbon Dioxide Level 23, Anion Gap 7, Blood Urea Nitrogen 5L, Creatinine 0.7, Estimat Glomerular Filtration Rate > 60, Glucose Level 123H, Uric Acid 0.8L, Calcium Level 7.6L, Phosphorus Level 2.1L, Magnesium Level 2.5H, Iron Level 62, Total Iron Binding Capacity 262, Percent Iron Saturation 24, Unsaturated Iron Binding 200, Ferritin 30, Total Bilirubin 0.4, Gamma Glutamyl Transpeptidase 23 , Aspartate Amino Transf (AST/SGOT) 21, Alanine Aminotransferase (ALT/SGPT) 27, Alkaline Phosphatase 42L, Total Creatine Kinase 63, Pro-B-Type Natriuretic Peptide 538H, Total Protein 5.3L, Albumin 2.8L, Globulin 2.5, Albumin/Globulin Ratio 1.1, Triglycerides Level 93, Cholesterol Level 135, LDL Cholesterol 83, HDL Cholesterol 52, Cholesterol/HDL Ratio 2.6L, Vitamin B12 Level 419, Thyroid Stimulating Hormone (TSH) 1.537 Height (Feet): 5 Height (Inches): 4.00 Weight (Pounds): 130 General Appearance: confused Respiratory/Chest: lungs clear Abdomen: soft Erika Cesar MD Mar 11, 2018 17:59
[2018-03-11 20:00] VITALS: BP 127/64
--- NOTE | 2018-03-11 23:06 | Cardiology Progress Note ---
Assessment/Plan Assessment/Plan 1. Sinus tahcycardia, resolved with hydration. 2. Hypotension, likely due to hypovolemia, responded to IV hydration. 3. Suicidal ideation Subjective Subjective Sinus bradycardia at 53. Denies chest pain or SOB. Objective Last 24 Hour Vital Signs Date Time Temp Pulse Resp B/P (MAP) Pulse Ox O2 Delivery O2 Flow Rate FiO2 03/11/18 20:00 97.7 53 20 127/64 (85) 98 97.7 03/11/18 16:20 97.7 59 20 120/76 (91) 97 97.7 03/11/18 12:00 64 03/11/18 11:53 98.4 66 20 115/73 (87) 96 98.4 03/11/18 09:00 Room Air 03/11/18 08:00 77 03/11/18 07:48 98.1 79 20 107/69 (82) 95 98.1 03/11/18 04:00 98.4 74 19 112/74 (87) 95 98.4 03/11/18 04:00 73 03/11/18 00:00 96.8 68 19 119/79 (92) 99 96.8 03/11/18 00:00 72 Intake and Output 03/10/18 03/11/18 19:00 07:00 Output Total 1000 ml 1600 ml Balance -1000 ml -1600 ml Output Urine Total 1000 ml 1600 ml Laboratory Tests Test 03/11/18 06:03 White Blood Count 5.4 K/UL (4.8-10.8) Red Blood Count 3.39 M/UL (4.20-5.40) L Hemoglobin 10.9 G/DL (12.0-16.0) L Hematocrit 33.2 % (37.0-47.0) L Mean Corpuscular Volume 98 FL (80-99) Mean Corpuscular Hemoglobin 32.2 PG (27.0-31.0) H Mean Corpuscular Hemoglobin Concent 32.9 G/DL (32.0-36.0) Red Cell Distribution Width 11.7 % (11.6-14.8) Platelet Count 220 K/UL (150-450) Mean Platelet Volume 6.7 FL (6.5-10.1) Neutrophils (%) (Auto) 67.6 % (45.0-75.0) Lymphocytes (%) (Auto) 26.2 % (20.0-45.0) Monocytes (%) (Auto) 4.0 % (1.0-10.0) Eosinophils (%) (Auto) 1.2 % (0.0-3.0) Basophils (%) (Auto) 1.0 % (0.0-2.0) Sodium Level 141 MMOL/L (136-145) Potassium Level 3.7 MMOL/L (3.5-5.1) Chloride Level 112 MMOL/L (98-107) H Carbon Dioxide Level 23 MMOL/L (21-32) Anion Gap 7 mmol/L (5-15) Blood Urea Nitrogen 5 mg/dL (7-18) L Creatinine 0.7 MG/DL (0.55-1.30) Estimat Glomerular Filtration Rate > 60 mL/min (>60) Glucose Level 123 MG/DL (74-106) H Uric Acid 0.8 MG/DL (2.6-7.2) L Calcium Level 7.6 MG/DL (8.5-10.1) L Phosphorus Level 2.1 MG/DL (2.5-4.9) L Magnesium Level 2.5 MG/DL (1.8-2.4) H Iron Level 62 ug/dL (50-175) Total Iron Binding Capacity 262 ug/dL (250-450) Percent Iron Saturation 24 % (15-50) Unsaturated Iron Binding 200 ug/dL (112-346) Ferritin 30 NG/ML (8-388) Total Bilirubin 0.4 MG/DL (0.2-1.0) Gamma Glutamyl Transpeptidase 23 U/L (5-85) Aspartate Amino Transf (AST/SGOT) 21 U/L (15-37) Alanine Aminotransferase (ALT/SGPT) 27 U/L (12-78) Alkaline Phosphatase 42 U/L (46-116) L Total Creatine Kinase 63 U/L (26-308) Pro-B-Type Natriuretic Peptide 538 pg/mL (0-125) H Total Protein 5.3 G/DL (6.4-8.2) L Albumin 2.8 G/DL (3.4-5.0) L Globulin 2.5 g/dL Albumin/Globulin Ratio 1.1 (1.0-2.7) Triglycerides Level 93 MG/DL (30-150) Cholesterol Level 135 MG/DL (< 200) LDL Cholesterol 83 mg/dL (<100) HDL Cholesterol 52 MG/DL (40-60) Cholesterol/HDL Ratio 2.6 (3.3-4.4) L Vitamin B12 Level 419 PG/ML (193-986) Thyroid Stimulating Hormone (TSH) 1.537 uiU/mL (0.358-3.740) Objective HEENT: normocephalic bilateral eye normal inspection, bilateral eye PERRL Neck: negative JVD, no carotid bruit Respiratory: chest non-tender, lungs clear, normal breath sounds, speaking full sentences Cardiovascular: regular rate, rhythm, no murmurs, gallops or rubs. Gastrointestinal: normal bowel sounds, non tender, soft, non-distended, no guarding, no rebound Genitourinary: no CVA tenderness Musculoskeletal: no edema, clubbing or cyanosis Jelani Gutierrez MD Mar 11, 2018 23:06
--- NOTE | 2018-03-12 08:52 | Discharge Summary ---
Discharge Summary Discharge Summary _ DATE OF ADMISSION: 03/10/2018 DATE OF DISCHARGE: 03/11/2018 CONSULTANTS: Dr. Jelani Presley [facility] HOSPITAL COURSE: Patient is a 47-year-old female, who was brought in by EMS due to overdose. Apparently the patient called the father and expressed suicidal intent. Father called the [employer] and 911 was summoned. Patient had a bottle of Xanax , unclear how many tablets were ingested. On arrival to ED, patient was very lethargic and was unable to provide any history. She was noted to have psychiatric disorder and bipolar disorder. Patient came in altered. Blood work showed slight hypokalemia, hemoglobin and hematocrit showed mild anemia. There was no leukocytosis. Urine toxicology was positive for benzodiazepine. Serum alcohol level 215. Urine hCG was negative. Poison control was contacted. There was no acute intervention required. Patient would need to be observed for respiratory depression. She was then admitted to telemetry. She was provided a sitter. Psychiatric evaluation was done. Patient was diagnosed with major depressive disorder, anxiety, alcohol and benzodiazepine dependence. Xanax was discontinued. She was given folate, thiamine and multivitamin. She was eventually started on Prozac. Neurological evaluation was done and she did not demonstrate any focal or lateralizing neurological findings. Electrolytes were repleted. She was given IV hydration. She had sinus tachycardia however resolved with IV hydration. She had an episode of low blood pressure which responded to IV hydration. She was eventually more awake and alert. She was encouraged ambulation. [facility] FINAL DIAGNOSES: Acute toxic encephalopathy secondary to drug overdose and alcohol intoxication Major depressive disorder Alcohol/benzodiazepine dependence Anxiety disorder Possible borderline personality disorder Sinus tachycardia, resolved with hydration Hypotension, due to hypovolemia Anemia Hypokalemia Hyper natremia DISPOSITION: Patient was discharged to a psychiatric facility. I have been assigned to dictate discharge summary on this account, and I was not involved in the patient's management. Akanksha Manning NP Mar 12, 2018 08:52
[2018-03-12] MEDS ORDERED: DULoxetine 30mg cap ORAL SCH (13:59)
--- NOTE | 2018-03-12 22:45 | Consultation ---
DATE OF CONSULTATION: 03/10/2018 CARDIOLOGY CONSULTATION CONSULTING PHYSICIAN: Jelani Gutierrez M.D. REFERRING PHYSICIAN: Erika Cesar M.D. REASON FOR CONSULTATION: Management of tachycardia and hypotension. HISTORY OF PRESENT ILLNESS: This is a very unfortunate 47-year-old female, who presents to the emergency department for evaluation for drug overdose. Apparently, the patient was brought in by EMS for evaluation of overdose. The patient had called her father the night before admission for suicidal ideation. Father activated 911 and at the time of arrival to the EMS, the patient had a pill bottle with her Xanax next to her. The patient was lethargic on arrival of EMS, it is not clear how many tablets of Xanax was ingested. At the time of arrival to the emergency department, the patient's blood pressure was 80/54 mmHg, heart rate was 60, and O2 saturation was 98% on room air. The patient from the emergency department was transferred to telemetry for observation. Psychiatric care consultation was made for 5150 due to suicidal ideation. Cardiology consultation was made at the request of Dr. Cesar for evaluation and management of hypotension. At the time of my evaluation, the patient did not have any chest pain or shortness of breath. She denied to leave the hospital and go home. PAST MEDICAL HISTORY: Psychiatric disorder mainly bipolar disorder. PAST SURGICAL HISTORY: None. LIST OF MEDICATION AT HOME: Includes Xanax 2 mg p.o. twice daily, Paxil 40 mg p.o. daily, and Topamax 100 mg p.o. daily. ALLERGIES: No known drug allergies. FAMILY HISTORY: No premature coronary artery disease or arrhythmogenic in the first-degree relatives. REVIEW OF SYSTEMS: A 12-system review done essentially is negative except what mentioned in the history of present illness. PHYSICAL EXAMINATION: VITAL SIGNS: Blood pressure was 80/54, respirations of 14, pulse of 60, temperature 97.6 degrees Fahrenheit, and O2 saturation of 98% on room air. GENERAL: The patient is a very unfortunate 47-year-old female, who appears to be lethargic, and in no apparent respiratory distress. HEENT: Atraumatic and normocephalic. Anicteric. Pupils are equal, round, and reactive to light and accommodation. Extraocular muscles intact. NECK: JVP is less than 5 cm. No carotid bruits. Carotid upstrokes 2+ bilaterally. CVS: Normal S1 and S2. Regular rate and rhythm. No murmurs, gallops, or rubs. PMI is at fourth intercostal space in the midclavicular. LUNGS: Clear to auscultation bilaterally. ABDOMEN: Soft, nontender, and nondistended. No hepatosplenomegaly. Positive bowel sounds. EXTREMITIES: No evidence of edema, clubbing, or cyanosis. LABORATORY FINDINGS: WBC is 5.8, hemoglobin 10.3, hematocrit 38.5, and platelet count is 237,000. Sodium 147, potassium is 3.4, chloride 112, bicarbonate 25, BUN 6, and creatinine 0.8. Calcium is 7.8. Toxicology showed positive benzodiazepines. Otherwise, negative. Electrocardiogram showed sinus rhythm with prolonged QT interval at 508, cannot rule out anterior infarct, age indeterminate. ASSESSMENT AND PLAN: The patient is a very unfortunate 47-year-old female, seen in Cardiology consultation at the request of Dr. Cesar. 1. Hypotension. This is most likely due to effect of benzodiazepines. Hydration is recommended. The patient will require magnesium sulfate 2 gram in view of prolonged QT interval. We will then check magnesium level in the morning. 2. Drug overdose mainly with benzodiazepines. 3. Psychiatric disorder with bipolar. Currently, on [address] Murphy. I would like to thank, Dr. Cesar, for the courtesy of this consultation. Jelani Gutierrez M.D. DR: EDGARDO JOB#: [id number] CC:
== END 2018-03-11 23:19 | DRG 817 ==
LOC: EDBD 00:52 → EMR 01:22 → 2E 04:38 → EDBEDREQ 06:12 → 2E 14:00
DX: T42.4X2A Poisoning by benzodiazepines, intentional self-harm, initial encounter (principal); G92 Toxic encephalopathy; I95.9 Hypotension, unspecified; E87.0 Hyperosmolality and hypernatremia; R45.851 Suicidal ideations; F13.20 Sedative, hypnotic or anxiolytic dependence, uncomplicated; D64.9 Anemia, unspecified; F10.229 Alcohol dependence with intoxication, unspecified; E87.6 Hypokalemia; R41.82 Altered mental status, unspecified; Y92.039 Unspecified place in apartment as the place of occurrence of the external cause; F32.9 Major depressive disorder, single episode, unspecified; F60.3 Borderline personality disorder; R00.0 Tachycardia, unspecified; E86.1 Hypovolemia
CPT/HCPCS: 36415; 80053; 80061; 80307; 80329; 81003; 81025; 82550; 82607; 82728; 82962; 82977; 83540; 83550; 83735; 83880; 84100; 84443; 84550; 85025; 86140; 93005; C9399